=== PATIENT | male | born 1940 | race African-American/Black ===

== ENCOUNTER 2019-05-05 21:46 | Inpatient (IN) | payer OTHER ==
[2019-05-05 22:22] LABS: BASO % 0.6 % (0-2.0); EOS % 3.8 % (0-4.5); HEMATOCRIT 40.8 % (35.4-49); HEMOGLOBIN 13.8 GM/dL (11.7-16.9); LYMPH % 32.3 % (8-40); MCH 29.6 pg (25.7-33.7); MCHC 33.9 g/dl (32.0-35.9); MEAN CELL VOLUME 87.3 fl (80-96); MEAN PLT VOLUME 9.9 fl (7.5-11.1); MONO % 7.3 % (3.8-10.2); PLATELET COUNT 170 K/MM3 (134-434); RBC 4.68 M/mm3 (4.00-5.60); RDW 13.4 % (11.9-15.9)
--- NOTE | 2019-05-05 22:34 | PDOC ---
History of Present Illness - General Chief Complaint: CVA/TIA Stated Complaint: SLURRED SPEECH Time Seen by Provider: 05/05/19 22:34 History Source: Patient, Spouse () Exam Limitations: No Limitations - History of Present Illness Initial Comments: Pt is an 79 yo M, with PMH of HTN, triple bypass CAD, and BPH, who is presenting with complaints of slurred speech and "slowed movement" since 2pm this afternoon. Pt has no current complaints, and does not recall having this symptoms. Pt is accompanied by his , who states the pt was in his usual state of health this AM (pt ambulatory on his own, very functional). When she returned from her errands at 2pm, she noticed the pt was "drooling from the R side of his mouth" and "moving all of his arms and legs very slowly". Pt continued to have these symptoms until about 8pm, when they called EMS, as pt had not improved. Pt denies any recent fevers/chills, headache, vision changes, syncope, chest pain, palpitations, SOB, nausea/vomiting, abdominal pain, urinary symptoms, diarrhea/constipation, or leg swelling. Allergies: NKDA PCP: Dr. Ramos ([facility]) Social: Pt denies any cigarette, alcohol, or drug use. Pt denies any recent travel or sick contacts. 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 Surgical: CABG Family: father with brain aneurysm/sudden age 49 05/06/19 03:57 Past History - Travel Traveled outside of the country in the last 30 days: No Close contact w/someone who was outside of country & ill: No - Past Medical History Allergies/Adverse Reactions: Allergies Allergy/AdvReac Type Severity Reaction Status Date / Time No Known Allergies Allergy Verified 05/05/19 22:13 Home Medications: Ambulatory Orders Amlodipine Besylate 10 mg PO DAILY 05/06/19 Atenolol [Tenormin] 25 mg PO DAILY 05/06/19 Lisinopril [Prinivil -] 40 mg PO DAILY 05/06/19 Tamsulosin HCl 0.4 mg PO DAILY 05/06/19 Cardiac Disorders: Yes CVA: No COPD: No HTN: Yes - Surgical History Cardiac Surgery: Yes - Suicide/Smoking/Psychosocial Hx Smoking History: Never smoked Have you smoked in the past 12 months: No Information on smoking cessation initiated: No Hx Alcohol Use: No Drug/Substance Use Hx: No Neuro Specific PMHX - Complaint Specific PMHX Glaucoma: No Herniated Disk: No Laminectomy: No Migraine: No Multiple Sclerosis: No Neuropathy: No TIA: No Review of Systems - Review of Systems Able to Perform ROS?: Yes Is the patient limited Indonesian proficient: No Constitutional: Yes: Weight Stable. No: Chills, Diaphoresis, Fever, Loss of Appetite, Malaise, Weakness HEENTM: No: Blurred Vision, Recent change in vision, Double Vision, Nose Congestion, Throat Pain, Throat Swelling Respiratory: No: Cough, Orthopnea, Shortness of Breath Cardiac (ROS): No: Chest Pain, Edema, Irregular Heart Rate, Lightheadedness, Palpitations, Syncope, Chest Tightness ABD/GI: No: Constipated, Diarrhea, Nausea, Poor Appetite, Poor Fluid Intake, Vomiting : No: Burning, Dysuria, Frequency, Flank Pain, Pain, Urgency Musculoskeletal: No: Back Pain, Joint Pain, Muscle Pain, Muscle Weakness Integumentary: No: Rash Neurological: Yes: See HPI (slurred speech, drooling from mouth, "moving slowly "). No: Headache, Numbness, Paresthesia, Pre-Existing Deficit, Seizure, Weakness, Unsteady Gait, Ataxia, Dizziness Psychiatric: No: Sleep Pattern Change, Change in Appetite Endocrine: No: Increased Urine, Change in Weight Hematologic/Lymphatic: No: Anemia, Blood Clots, Easy Bleeding, Easy Bruising All Other Systems: Reviewed and Negative *Physical Exam - Vital Signs Last Vital Signs Temp Pulse Resp BP Pulse Ox 98.5 F 57 L 16 151/81 80 L 05/05/19 21:54 05/05/19 21:54 05/05/19 21:54 05/05/19 21:54 05/05/19 21:54 - Physical Exam Comments: Vitals stable, HR in 40s-50s, NSR. Pt afebrile. Pt in NAD, normal body habitus. Pt alert and oriented x3. 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 Mild flattening of R nasal fold. Mild dysmetria ([id number]) on the R. Heel-arreguin and disdiadokinesia exams WNL. No abnormal gait. Negative Romberg. No midline spinal tenderness, step-offs, or crepitus. Head normocephalic, atraumatic. Eyes PERRLA, EOMI. Oropharynx without erythema or exudates, no LAD b/l. No nasal congestion, hearing intact. Clear heart sounds, S1/S2, no JVD, b/l pedal edema, or heart murmur. Clear lung sounds, no respiratory distress, wheezes, crackles, or accessory muscle use. No abdominal or CVA tenderness to palpation, no rebound, no guarding. Abdomen soft, non-distended, and with normoactive bowel sounds. Skin without jaundice or rash. 05/06/19 03:46 NIH Stroke Scale - Last Known Well Date/Time & Onset Date Last Known Well: 05/05/19 Time Last Known Well: 14:00 - Initial Evaluation Level of consciousness: Alert Ask patient the month and their age: Answers both correctly Ask patient to open & close eyes; make fist and let go: Obeys both correctly Best gaze (horizontal eye movement): Normal Visual field testing: No visual field loss Facial paresis (Show teeth/raise eyebrows/close eyes tight): Minor paralysis ( flattened nasolabial fold, asymmetry on smiling) Motor Function: Left Arm: Normal Motor Function: Right Arm: Normal (extends arm 90 (or 45) degrees for 10 seconds without drift Motor Function: Left Leg: Normal (extends leg 30 degrees for 5 seconds without drift) Motor Function: Right Leg: Normal (extends leg 30 degrees for 5 seconds without drift) Limb Ataxia: No ataxia Sensory(Use pinprick test arms,legs,trunk,face/side to side): Normal Best language (Describe picture, name items, read sentences): No Aphasia Dysarthria (read several words): Normal articulation Extinction and Inattention: No abnormality - Total Score NIH Stroke Scale Score: 1 Critical Care Time/MDM Note - Medical Decision Making Note: Pt was seen at bedside, also will be seen by attending Dr. Cline. Pt presenting with complaints of slurred speech and "slowed movement" since 2pm this afternoon. Pt has no current complaints, and does not recall having this symptoms. Pt is accompanied by his , who states the pt was in his usual state of health this AM (pt ambulatory on his own, very functional). When she returned from her errands at 2pm, she noticed the pt was "drooling from the R side of his mouth" and "moving all of his arms and legs very slowly". Pt continued to have these symptoms until about 8pm, when they called EMS, as pt had not improved. Pt denies any recent fevers/chills, headache, vision changes, syncope, chest pain, palpitations, SOB, nausea/vomiting, abdominal pain, urinary symptoms, diarrhea/constipation, or leg swelling. PE: mild dysmetria to R side and mild flattening of R nasal fold. Considering CVA vs TIA vs bleed vs hypoglycemic episode vs infection (UTI) vs medication non-compliance Ordered work-up including CBC, CMP, cardiac profile, lipid profile, non- contrast head CT, UA, chest x-ray, ECG. Will continue to reassess pt and monitor for symptomatic improvement. ECG: Sinus bradycardia with PACs, intervals WNL (HR 49, SC 178, QRS 100, QTc 415 ). No TWIs or significant ST segment changes. No prior ECG for comparison. CBC, CMP, and coags WNL Trop <.02 Non-contrast head CT with no acute changes. Lipid panel: Trig 183, LDL 117, HDL 34 Spoke with neurology on-call (Dr. Betancourt), who suggested MRI/MRA, carotid doppler, and starting lipitor and ASA. Provided 40 mg Lipitor and 325 mg Aspirin. Pt was admitted to hospitalist team (Dr. Preston), for further observation on the stroke unit, as pt likely had TIA, and still has mild deficits. 05/06/19 03:49 *DC/Admit/Observation/Transfer Diagnosis at time of Disposition: Transient ischemic attack - Discharge Dispostion Condition at time of disposition: Stable Decision to Admit order: Yes - Referrals - Patient Instructions - Post Discharge Activity
[2019-05-05 22:38] LABS: INR 1.08 (0.83-1.09); PROTHROMBIN TIME (PATIENT) 12.8 SEC (9.7-13.0)
[2019-05-05 22:48] LABS: ALBUMIN 4.1 g/dl (3.4-5.0); ALK PHOS 118 U/L (45-117); ANION GAP 6 MMOL/L (8-16); BILIRUBIN,TOTAL 0.5 mg/dL (0.2-1); BLOOD UREA NITROGEN 17.6 mg/dL (7-18); CALCIUM 8.9 mg/dL (8.5-10.1); CHLORIDE 107 mmol/L (98-107); CO2 26 mmol/L (21-32); CREATININE 1.3 mg/dL (0.55-1.3); GLUCOSE,RANDOM 111 mg/dL (74-106); POTASSIUM 4.1 mmol/L (3.5-5.1); SGOT/AST 12 U/L (15-37); SGPT/ALT 20 U/L (13-61); SODIUM 139 mmol/L (136-145); TOT PROT 7.6 g/dl (6.4-8.2)
[2019-05-05] MEDS ORDERED: ATORVASTATIN CA 40 MG TABLET (FP) PO ONE (23:38)
[2019-05-05] MEDS ORDERED: ASPIRIN 325 MG ENTERIC COATED TABLET (FP) PO ONE (23:38)
[2019-05-05] MEDS ORDERED: ASPIRIN 325 MG ENTERIC COATED TABLET (FP) ONE (23:55)
[2019-05-05] MEDS ORDERED: ATORVASTATIN CA 40 MG TABLET (FP) ONE (23:55)
[2019-05-06 00:07] LABS: CHOLESTEROL 167 mg/dL (50-200); HDL CHOLESTEROL 34 mg/dL (40-60); TRIGLYCERIDES 183 mg/dL (0-150)
--- NOTE | 2019-05-06 00:53 | HP ---
<Agaba,Comfort I - Last Filed: 05/06/19 18:07> Admitting History and Physical - Primary Care Physician PCP: Dr Ramos ([facility]) - Admission Chief Complaint: Slurred speech and R sided drooling x 1 day History of Present Illness: Pt is an 79 yo M with PMhx of recent mild Alzheimer's diagnosis, HTN, CABG ( May 1996) Ca prostate with implanted seeds (2004) presenting from home after noted him to have new onset slurred speech and R sided drooling at 2.30pm today. Pt's last well was about 7.40am yesterday when the left him in his usual state of health. Per ED, the pt was able to lift both extremities but was noted to respond slowly. He was able to comprehend, but his responses were also slowed prior to arrival in ED. Pt reports not noting the difference prior to the pointing it out. At baseline he is independent in ADLs, does not walk with a a cane. No reported seizures or incontinence of feces or urine. 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 Per pt, there was an episode of syncope in Oct [address] head changes showing chronic small vessel infarcts Ed noted R flattened nasolabial fold. NHISS not documented. Per pt, since arrival in the ED, he feels he has returned almost to baseline. 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 Cardiovascular: Yes: CAD (S/p CABG) Rheumatology: Yes: Gout (Intermittent colchicine use) - Past Surgical History Past Surgical History: Yes: CABG - Smoking History Smoking history: Never smoked Have you smoked in the past 12 months: No - Alcohol/Substance Use Hx Alcohol Use: No - Social History Usual Living Arrangement: Yes: With Spouse, With Child ADL: Independent History of Recent Travel: No Home Medications - Allergies Allergies/Adverse Reactions: Allergies Allergy/AdvReac Type Severity Reaction Status Date / Time No Known Allergies Allergy Verified 05/05/19 22:13 - Home Medications Home Medications: Ambulatory Orders Cholecalciferol (Vitamin D3) [Vitamin D3] 2,000 unit PO DAILY 05/06/19 Tamsulosin HCl 0.4 mg PO DAILY 05/06/19 Aspirin Coated [Ecotrin -] 325 mg PO DAILY #30 tablet.dr 05/08/19 Hydrochlorothiazide [Hctz -] 25 mg PO DAILY #20 tablet 05/08/19 Lisinopril [Prinivil] 20 mg PO BID #60 tablet 05/08/19 Nifedipine ER [Procardia XL -] 60 mg PO DAILY #30 tab.er.24 05/08/19 Rosuvastatin [Crestor -] 40 mg PO HS #30 tablet 05/08/19 Family Disease History - Family Disease History Family Disease History: Heart Disease: Father ( in 40s), Other: Mother ( of sepsis following fracture) Review of Systems - Review of Systems Constitutional: denies: Chills, Fever, Lethargy, Loss of Appetite Eyes: reports: Other (Had catarract surgery). denies: Blurred Vision Cardiovascular: denies: Chest Pain, Edema, Palpitations, Shortness of Breath Respiratory: denies: Cough, SOB, SOB on Exertion, Wheezing Genitourinary: denies: Burning, Dysuria, Flank Pain Musculoskeletal: denies: Back Pain, Decreased ROM Neurological: reports: Weakness, Other (New drooling). denies: Change in LOC, Confusion, Headache, Numbness, Parasthesia, Pre-Existing Deficit, Tremors, Unsteady Gait Physical Examination Vital Signs: Vital Signs Temperature 98.5 F 05/05/19 21:54 Pulse Rate 57 L 05/05/19 21:54 Respiratory Rate 16 05/05/19 21:54 Blood Pressure 151/81 05/05/19 21:54 O2 Sat by Pulse Oximetry (%) 80 L 05/05/19 21:54 Constitutional: Yes: Well Nourished Eyes: Yes: Conjunctiva Clear (injection), EOM Intact, PERRL. No: Ptosis, Sclera Icterus HENT: Yes: Atraumatic. No: Drooling, Nasal Congestion, Thrush Neck: Yes: Supple Cardiovascular: Yes: Bradycardia, S1, S2 Respiratory: Yes: CTA Bilaterally. No: Stridor, Wheezes Gastrointestinal: Yes: Normal Bowel Sounds, Soft Renal/: No: CVA Tenderness - Left, CVA Tenderness - Right Musculoskeletal: No: Joint Stiffness, Joint Swelling, Muscle Pain Extremities: Yes: WNL, Other (b/l big toes with calluses, no swelling or redness ). No: Erythema Edema: No Peripheral Pulses WNL: Yes Neurological: Yes: Alert, Oriented, Aphasia, Cran Nerves II-XII Intact, Facial Droop (R flattened nasolabial fold). No: Confusion ...Motor Strength: WNL Psychiatric: Yes: Alert, Oriented Labs: CBC, BMP 05/05/19 22:17 05/05/19 22:17 Imaging - Results Cat Scan: Report Reviewed Assessment/Plan Ambulatory Orders Amlodipine Besylate 10 mg PO DAILY 05/06/19 Atenolol [Tenormin] 25 mg PO DAILY 05/06/19 Lisinopril [Prinivil -] 40 mg PO DAILY 05/06/19 Tamsulosin HCl 0.4 mg PO DAILY 05/06/19 Current Medications Amlodipine Besylate (Norvasc -) 10 mg PO DAILY [facility] Heparin Sodium (Porcine) (Heparin -) 5,000 unit SQ Q8H-IV [facility] Lisinopril (Prinivil) 40 mg PO DAILY [facility] Tamsulosin HCl (Flomax -) 0.4 mg PO DAILY@0830 [facility] 79 yo M with PMHx of Mild dementia, HTN, CABG (May 2016), gout, Ca prostate s/ p prostate seeds (2004) presenting from home with new onset slurred speech and R sided drooling with resolving symptoms since presentation TIA/Stroke- NIHSS-1 (flattened R nasolabial fold) HTN, CABG (May 2016), gout, Ca prostate s/p prostate seeds (2004) Bradycardia Dementia Plan MRI ASA lipitor- ASCVD score- Unable to calculate as age is too high Hold atenolol with bradycardia Tamsolusin ECHO Carotid US Neuro consult- Dr Betancourt Lisinopril amlodipine Hep sq Cardiac monitoring Speech and swallow PT Stroke unit NPO for now Repeat EKG Pacer pads No standing fluids Fall precautions, elevate HOB Visit type - Emergency Visit Emergency Visit: Yes ED Registration Date: 05/05/19 Care time: The patient presented to the Emergency Department on the above date and was hospitalized for further evaluation of their emergent condition. - New Patient This patient is new to me today: Yes Date on this admission: 05/06/19 - Critical Care Critical Care patient: No <Andi Preston - Last Filed: 05/10/19 23:38> Physical Examination Vital Signs: Vital Signs Temperature 97.2 F L 05/08/19 13:18 Pulse Rate 78 05/08/19 13:18 Respiratory Rate 20 05/08/19 13:18 Blood Pressure 102/64 05/08/19 13:18 O2 Sat by Pulse Oximetry (%) 100 05/08/19 09:00 Labs: CBC, BMP 05/07/19 06:15 05/07/19 06:15 Assessment/Plan Seen and examined; agree with above except as supplemented by myself in my own documentation. Present for and verified all lyons parts of history of physical exam and independently reviewed all labs, test results, etc.
--- NOTE | 2019-05-06 00:53 | PN ---
Teaching Attending Note Name of Resident: Radha Baltazar ATTENDING PHYSICIAN STATEMENT I saw and evaluated the patient. I reviewed the resident's note and discussed the case with the resident. I agree with the resident's findings and plan as documented. SUBJECTIVE: Seen and examined; please refer to resident note for further historical information. Unfortunately family is not available. returned to find him drooling with slurred speech and mild R-facial droop. He was slow to respond and had some b/l UE weakness described. Symptoms have resolved at this point and he is back at baseline. His HR is noted to be maintaining in the 40s but sometimes increasing to the 50s. He is hemodynamically stable aside from this, maintaining his pressures and mentation. When I spoke with him he said he had the same issue last year. He is documented as having baseline dementia and cannot recall all his medications, etc. Unfortunately his departed by the time we arrived to see him so we could not further verify the history; attempting to reach out. He has no other complaints at this time. 10 sys ROS done and negative aside from HPI PMH, PSH, FH, SH reviewed Home medication reconciliation pending: colchicine, lisinopril, atenolol, tamsulosin. Will call pharmacy in the AM. OBJECTIVE: VS, labs, imaging reviewed NAD, AAO, resting comfortably in bed NC AT EOMI PERRLA NIHSS noted, CN2-12 wnl. Moves all 4 extremitites NT ND +BS Normal mood, appropriate behavior. CT reviewed EKG reviewed; no pior for comparison ASSESSMENT AND PLAN: Possible TIA -Symptoms are not classical for TIA given b/l distribution, etc. Considering other causes like cerebral hpoperfusion 2/2 bradycardia, etc. -Followup neurology consultation; appreciate expert opinion. I am informed by the resident team that the ER spoke with their service. -Check MRI, echo, dopplers, B12, Folate, RPR, TSH. -PT and swallow evaluation -Fall precautions, neuro checks, seizure precautions. -Monitor telemetry Sinus bradycardia (40s, 50s) -On atenolol at home; confirm with pharmacy in AM and hold. -BP is normal, mentating at baseline now. EKG does not reveal high degree AV block. Followup on rhythm strips and consider repeating EKG in AM. Follwup echo. Consider CV consultation. -Pacer pads on for safety Dementia -Speak with family to clarify baseline and discuss code status
--- NOTE | 2019-05-06 02:07 | PDOC ---
Documentation entered by Rachel Crowell SCRIBE, acting as scribe for Saniya Cline DO. Saniya Cline DO: This documentation has been prepared by the loren, Rachel Crowell SCRIBE, under my direction and personally reviewed by me in its entirety. I confirm that the documentation accurately reflects all work , treatment, procedures, and medical decision making performed by me. Attending Attestation - Resident Resident Name: Zainab West - ED Attending Attestation I have performed the following: I have examined & evaluated the patient, The case was reviewed & discussed with the resident, I agree w/resident's findings & plan - HPI HPI: 05/06/19 00:03 The patient is an 79 year old male with reported past medical history significant for HTN, s/p triple CABG (3 years ago) presents to the emergency department with decreased responsiveness, noticed by around 2:00 pm. Patients possible last reported normal self was around noon. The family observed the patient for a while at home, prior to being him to the emergency department around 9:00 pm. Denies trauma. Denies fever or chills. The patient currently denies any complaint. Per family, the patient still not at baseline. Allergies: NKA - Physicial Exam PE: 05/05/19 23:22 Agree with Resident - Medical Decision Making 05/06/19 02:05 79-year-old male with altered mental status and decreased responsiveness according to the since [address] scan of the brain shows no acute findings EKG shows a bradycardia at 49 beats per minutes, likely sinus Patient is awake alert in no acute distress Oxygen saturation is actually 100% on room air Chest x-ray shows no focal infiltrates Patient will be admitted to medical service for further evaluation Case was discussed with neurology by the emergency department physician who recommends aspirin and Lipitor
[2019-05-06 07:08] LABS: ALBUMIN 3.6 g/dl (3.4-5.0); ALK PHOS 103 U/L (45-117); ANION GAP 6 MMOL/L (8-16); BILIRUBIN,TOTAL 0.7 mg/dL (0.2-1); BLOOD UREA NITROGEN 14.7 mg/dL (7-18); CALCIUM 8.4 mg/dL (8.5-10.1); CHLORIDE 107 mmol/L (98-107); CO2 29 mmol/L (21-32); CREATININE 1.2 mg/dL (0.55-1.3); GLUCOSE,RANDOM 100 mg/dL (74-106); PHOSPHOROUS 3.4 mg/dL (2.5-4.9); SGOT/AST 12 U/L (15-37); SGPT/ALT 17 U/L (13-61); SODIUM 142 mmol/L (136-145); TOT PROT 6.7 g/dl (6.4-8.2)
[2019-05-06] MEDS ORDERED: HEPARIN NA (PORCINE) 5,000 UNITS/ML 1ML VIAL ONE (08:50)
[2019-05-06] MEDS ORDERED: TAMSULOSIN HCL 0.4 MG CAP ONE (08:50)
[2019-05-06] MEDS: TAMSULOSIN HCL 0.4 MG CAP PO SCH (08:51)
[2019-05-06] MEDS: HEPARIN NA (PORCINE) 5,000 UNITS/ML 1ML VIAL SQ SCH ×3 (08:51→21:40)
--- NOTE | 2019-05-06 09:12 | CON.NEURO ---
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 Cardio/Vascular: Yes: CAD (S/p CABG) Rheumatology: Yes: Gout (Intermittent colchicine use) - Past Surgical History Past Surgical History: Yes: CABG - Alcohol/Substance Use Hx Alcohol Use: No - Smoking History Smoking history: Never smoked Have you smoked in the past 12 months: No - Social History ADL: Independent History of Recent Travel: No Home Medications - Allergies Allergies/Adverse Reactions: Allergies Allergy/AdvReac Type Severity Reaction Status Date / Time No Known Allergies Allergy Verified 05/05/19 22:13 - Home Medications Home Medications: Ambulatory Orders Amlodipine Besylate 10 mg PO DAILY 05/06/19 Atenolol [Tenormin] 25 mg PO DAILY 05/06/19 Lisinopril [Prinivil -] 40 mg PO DAILY 05/06/19 Tamsulosin HCl 0.4 mg PO DAILY 05/06/19 Family Disease History - Family Disease History Family Disease History: Heart Disease: Father ( in 40s), Other: Mother ( of sepsis following fracture) Physical Exam-Neuro Vital Signs: Vital Signs Temperature 97.9 F 05/06/19 07:11 Pulse Rate 48 L 05/06/19 08:55 Respiratory Rate 15 05/06/19 08:55 Blood Pressure 149/64 05/06/19 07:11 O2 Sat by Pulse Oximetry (%) 100 05/06/19 08:55 Labs: CBC, BMP 05/05/19 22:17 05/06/19 06:00 INR, PTT INR 1.08 (0.83-1.09) 05/05/19 22:17 Assessment/Plan CC Slurring of speech and right sided facial palsy yesterday HPI 79 year old male history of Dementia, HTN, CABG( 1995), Ca pROSTATE .Patient 's noticed that he was having slurring of speech and drooling from side of his face arund 2.30 pm. patient was able to move arm and leg sand able to understand but felt he was slow. Patient is quite independent and able to take care of him. There was no other focal neurological symptoms including weakness, numbness or loc. Patient had episode of syncope in 2018. His ct head showed old lesion. Laura has nih score of 1. PMH as above, and gout, LIves with and able to activities of daily living, NKDA SH,ROS,FH reviewed in chart Home Medications: Amlodipine Besylate 10 mg PO DAILY 05/06/19 Atenolol [Tenormin] 25 mg PO DAILY 05/06/19 Lisinopril [Prinivil -] 40 mg PO DAILY 05/06/19 Tamsulosin HCl 0.4 mg PO DAILY 05/06/19 NEUROLOGICAL EXAMINATION Alert , speech is normal, oriented x 3( he knows it is april and he is at [facility]) no neck stiffness, normotensive and afebrile eomi pupils reactive no face asymmetry moving all ext sensation is noraml ct head no acute abnoramlity identified Assessment /PLAN -79 year old male history of HTN,CABG, Mild dementia came with slurred speech and facial droopiness which resolved in hours, he takes apsirin at home, but do not take statin, now exam is noraml, nih score is [address] head is normal Plan: 1. mri of brain, carotid ultrasound , echo - increase aspirin 325 mg once a day, add lipitor 20 mg once a day - dvt prophylaxis, - stroke education - case discussed with [facility] staff Thanking you so much Ruben Betancourt MD
[2019-05-06] MEDS ORDERED: ASPIRIN COATED 81 MG TABLET.EC PO SCH (10:00)
[2019-05-06] MEDS: amLODIPine BESYLATE 10 MG TABLET (FP) PO SCH (10:24)
[2019-05-06] MEDS: LISINOPRIL 20 MG TABLET (FP) PO SCH (10:24)
--- NOTE | 2019-05-06 10:29 | PN ---
Physical Exam: SUBJECTIVE: Patient seen this morning and reports he is feeling well. He reports his speech sounds normal to him. OBJECTIVE: Vital Signs Temperature 97.9 F 05/06/19 07:11 Pulse Rate 48 L 05/06/19 08:55 Respiratory Rate 15 05/06/19 08:55 Blood Pressure 149/64 05/06/19 07:11 O2 Sat by Pulse Oximetry (%) 100 05/06/19 08:55 GENERAL: The patient is awake, alert, and fully oriented, in no acute distress. HEAD: Normal with no signs of trauma. EYES: PERRL, extraocular movements intact, ENT: moist mucous membranes. NECK: Trachea midline, full range of motion, supple. LUNGS: Breath sounds equal, clear to auscultation bilaterally HEART: Regular rate and rhythm, S1, S2 without murmur, rub or gallop. ABDOMEN: Soft, nontender, nondistended, normoactive bowel sounds, no guarding, no rebound, no hepatosplenomegaly, no masses. EXTREMITIES: 2+ pulses, warm, well-perfused, no edema. ROM intct, 5/5 strength diffusely, sensation intact diffusely NEUROLOGICAL: Cranial nerves II through XII grossly intact. Normal speech PSYCH: Normal mood, normal affect. SKIN: Warm, dry, normal turgor, no rashes or lesions noted CBCD WBC 6.0 K/mm3 (4.0-10.0) 05/05/19 22:17 RBC 4.68 M/mm3 (4.00-5.60) 05/05/19 22:17 Hgb 13.8 GM/dL (11.7-16.9) 05/05/19 22:17 Hct 40.8 % (35.4-49) 05/05/19 22:17 MCV 87.3 fl (80-96) 05/05/19 22:17 MCHC 33.9 g/dl (32.0-35.9) 05/05/19 22:17 RDW 13.4 % (11.9-15.9) 05/05/19 22:17 Plt Count 170 K/MM3 (134-434) 05/05/19 22:17 MPV 9.9 fl (7.5-11.1) 05/05/19 22:17 CMP Sodium 142 mmol/L (136-145) 05/06/19 06:00 Potassium 4.0 mmol/L (3.5-5.1) 05/06/19 06:00 Chloride 107 mmol/L (98-107) 05/06/19 06:00 Carbon Dioxide 29 mmol/L (21-32) 05/06/19 06:00 Anion Gap 6 MMOL/L (8-16) L 05/06/19 06:00 BUN 14.7 mg/dL (7-18) 05/06/19 06:00 Creatinine 1.2 mg/dL (0.55-1.3) 05/06/19 06:00 Calcium 8.4 mg/dL (8.5-10.1) L 05/06/19 06:00 Total Bilirubin 0.7 mg/dL (0.2-1) 05/06/19 06:00 AST 12 U/L (15-37) L 05/06/19 06:00 ALT 17 U/L (13-61) 05/06/19 06:00 Alkaline Phosphatase 103 U/L (45-117) 05/06/19 06:00 Total Protein 6.7 g/dl (6.4-8.2) 05/06/19 06:00 Albumin 3.6 g/dl (3.4-5.0) 05/06/19 06:00 Active Medications Amlodipine Besylate (Norvasc -) 10 mg PO DAILY [facility] Aspirin (Ecotrin -) 81 mg PO DAILY [facility] Atorvastatin Calcium (Lipitor -) 40 mg PO HS [facility] Heparin Sodium (Porcine) (Heparin -) 5,000 unit SQ TID [facility] Last Admin: 05/06/19 08:51 Dose: 5,000 unit Lisinopril (Prinivil) 40 mg PO DAILY [facility] Tamsulosin HCl (Flomax -) 0.4 mg PO DAILY@0830 [facility] Last Admin: 05/06/19 08:51 Dose: 0.4 mg ASSESSMENT/PLAN: Patient is a 79 y/o male with a history of mild dementia, HTN, CABG ( may 2016) , gout, porstate ca s/p prostate seeds (2004) who is admitted to r/o stroke. #new onset slurred speech and weakness - cannot r/o TIA vs stroke - symptoms resolved - CT: mild degree of diffuse cerbral atrophy and sulcal widening and ventral dilitation, no acute intracranial pathology - f/u Brain MRI - per Neuro increase asa to 325 mg daily, lipitor 20 mg once a day - stroke education - ECHO: left and right size and function normal #HTN - continue lisinopril 40 mg and amlodipine 20 mg daily - BP stable #bradycardia - EKG 1st degree av block - hold atenolol - TSH WNL - pacer pads at bedside #BPH - tamsulonin 0.4 mg daily #DVT ppx - heparin TID FEN -passed swallow, low sodium diet Dispo: monitor on stroke floor Visit type - Emergency Visit Emergency Visit: Yes ED Registration Date: 05/05/19 Care time: The patient presented to the Emergency Department on the above date and was hospitalized for further evaluation of their emergent condition. - New Patient This patient is new to me today: Yes Date on this admission: 05/06/19 - Critical Care Critical Care patient: No
--- NOTE | 2019-05-06 11:46 | EKG ---
Test Reason : Blood Pressure : / mmHG Vent. Rate : 049 BPM Atrial Rate : 049 BPM P-R Int : 178 ms QRS Dur : 100 ms QT Int : 460 ms P-R-T Axes : 060 028 -07 degrees QTc Int : 415 ms SINUS BRADYCARDIA WITH PREMATURE ATRIAL COMPLEXES NONSPECIFIC T WAVE ABNORMALITY ABNORMAL ECG NO PREVIOUS ECGS AVAILABLE Confirmed by PARIS DALTON, BAUDILIO ([id number]) on 05/06/2019 11:45:33 AM Referred By: Confirmed By:BAUDILIO TOLEDO MD
--- NOTE | 2019-05-06 12:41 | ECHO ---
Name: BISI GARCIA Exam:Adult Echocardiogram Study Date: 05/06/2019 08:39 AM Age: 79 yrs Reason For Study: SYNCOPE Height: 66 in Weight: 175 lb BSA: 1.9 m2 MMode/2D Measurements & Calculations IVSd: 1.1 cm Ao root diam: 3.1 cm LVIDd: 3.9 cm ACS: 1.9 cm LVIDs: 2.9 cm LVPWd: 1.1 cm EDV(Teich): 67.2 ml LVOT diam: 1.9 cm ESV(Teich): 32.4 ml Doppler Measurements & Calculations MV E max mike: 72.1 cm/sec Ao V2 max: 127.0 cm/sec MV A max mike: 96.7 cm/sec Ao max P.5 mmHg MV E/A: 0.74 Ao V2 mean: 87.3 cm/sec Ao mean P.3 mmHg Ao V2 VTI: 34.1 cm KYLAH(I,D): 1.5 cm2 KYLAH(V,D): 1.4 cm2 LV V1 max P.5 mmHg SV(LVOT): 52.2 ml LV V1 mean P.80 mmHg LV V1 max: 60.7 cm/sec LV V1 mean: 41.9 cm/sec LV V1 VTI: 17.6 cm Med Peak E' Mike: 6.4 cm/sec Med E/e': 11.2 Lat Peak E' Mike: 6.8 cm/sec Lat E/e': 10.6 Procedure A complete two-dimensional transthoracic echocardiogram was performed (2D, M-mode, Doppler and color flow Doppler). Left Ventricle The left ventricular size, thickness and function are normal. The left ventricular ejection fraction is normal. Ejection Fraction = 60-65%. The left ventricular wall motion is normal. Right Ventricle The right ventricle is normal in size and function. Atria Normal left and right atrial size and function. Mitral Valve There is no mitral regurgitation noted. Tricuspid Valve There is trace tricuspid regurgitation. There was insufficient TR detected to calculate RV systolic p ressure. Aortic Valve The aortic valve is trileaflet. No hemodynamically significant valvular aortic stenosis. No aortic regurgitation is present. Pulmonic Valve There is no pulmonic valvular regurgitation. Great Vessels The aortic root is normal size. Pericardium/Pleura There is no pericardial effusion. Interpretation Summary The left ventricular size, thickness and function are normal The right ventricle is normal in size and function. There is trace tricuspid regurgitation. MD Leonardo Isaac 05/06/2019 12:40 PM
--- NOTE | 2019-05-06 14:18 | PN ---
Teaching Attending Note Name of Resident: Jessie Sexton ATTENDING PHYSICIAN STATEMENT I saw and evaluated the patient. I reviewed the resident's note and discussed the case with the resident. I agree with the resident's findings and plan as documented. SUBJECTIVE:asymptomatic. denies Cp,SOB, fever, chills, N/V/C/D OBJECTIVE: Last Vital Signs Temp Pulse Resp BP Pulse Ox 97.9 F 48 L 15 149/64 100 05/06/19 07:11 05/06/19 08:55 05/06/19 08:55 05/06/19 07:11 05/06/19 08:55 General NAD CV S1 S2 RRR no murmur/rub/gallop Lungs CTA B/L no wheezing/rales/rhonchi Abdomen soft NT/ND Extremiteis trace pitting edema Neuro CN II-XII grossly intact, strength and sensation equal in all extremities , negative pronator/dysmetria/heel to arreguin testing ASSESSMENT AND PLAN: 79yo M wtih PMH Dementia, HTN, CAD s/p CABG, prostate ca s/p seeds 2004 presented to the ER with drooling nad slurred speech. Code baird was initiated and NIHSS 1 on arrival. 1. R/o CVA/TIA- appears symptoms have resolved at this time. initial Head CT negative. Awaiting Brain MRI/MRA, echo carotid u/s. asa increased to 325mg and started on high intensity statin. neuro on board, swallow eval and PT. LDL 117 2. Sinus Bradycardia- asymptomatic. no know hx per patient. EKG with 1st degree AV block. holding atenolol. f/u echo. TSH WNL 3. HTN- above goal. on max doses of norvasc/Acei. will start HCTZ 25mg. titrate to optimize medications 4. CAD s/p CABG 5. prostate ca s/p seeds 6. DVT ppx- hep sq
--- NOTE | 2019-05-06 14:33 | CONSULT ---
Admitting History and Physical - Primary Care Physician PCP: Kristal Sampson - Admission History of Present Illness: 79yo M [facility], [place] Dementia, HTN, CAD s/p CABG, prostate ca s/p seeds 2004 presented to the ER with drooling and slurred speech. R/o CVA/TIA- initial Head CT negative. Pending Brain MRI/MRA Seen in ED. History Source: Patient Limitations to Obtaining History: Clinical Condition (Pt with dx of Dementia. Good historian for me. Pt tells me he has been in the ED since yesterday. He was drooling and his balance was off yesterday. He reports that it lasted a few hours but that he feels better today. He is hungry.) - Past Medical History Cardiovascular: Yes: CAD (S/p CABG) Rheumatology: Yes: Gout (Intermittent colchicine use) - Past Surgical History Past Surgical History: Yes: CABG - Smoking History Smoking history: Never smoked Have you smoked in the past 12 months: No - Alcohol/Substance Use Hx Alcohol Use: No - Social History ADL: Independent History of Recent Travel: No History - Admission Reason For Visit: TRANSIENT ISCHEMIC ATTACK - Diagnostics X-ray: Report Reviewed CT Scan: Report Reviewed MRI: Pending - General Mental Status: Alert and Oriented, Awake and Alert, Able to Follow Commands Attention: Intact Ability to Follow Directions: Excellent Head/Neck Control: WFL - Hearing Hearing: Functional Speech Evaluation - Communication Primary Language: ICELANDIC Communication: Yes: Within Normal Limits Oral Expression Ability: Yes: Mild Impairment (slight imprecision vs [place] accent?) - Speech Production Able to Make Needs Known: Yes: WNL Intelligibility: Yes: Mildly Impaired (slight?) - Speech Characteristics Voice Loudness: Normal Voice Pitch: Yes: Normal Voice Phonatory-based Quality: Yes: Normal Speech Clarity: < 100% Nasal Resonance: Normal Articulation: Yes: Imprecise (slight. Slightly reduced VOM) - Language/Auditory Comprehension Follows: Yes: 2 Stage Simple Commands Observation: Able to respond to yes/no queries: Yes, Yes/No Confusion: No, Comprehends Conversational Speech: Yes - Language/Verbal Expression Able to Respond to Simple Queries: Yes: WNL Able to Communicate Wants and Needs: Yes: WNL Functional Communication Status: Yes: WNL Attention: Yes: Intact - Memory/Perception intermediate Memory: Yes: WNL Short Term Memory: Yes: WNL - Swallow Evaluation/Bedside Assessment Current Nutritional Intake: NPO Oral Secretions: Yes: WFL Dentition: Yes: Adequate Facial Symmetry at Rest: Facial Droop Right (slight?) Facial Symmetry on Retraction: Symmetrical Facial Movement: Controlled Against Resistance Opening: Normal Against Resistance Closing: Normal Pucker Lips: Normal Smile: Normal Lingual Movement: Symmetric Lingual Speed of Movement: Normal Lingual Movement Strgth Against Opposition: Normal Lingual Movement Characteristics: Normal Velopharyngeal Movement: Normal Laryngeal Elevation: WFL Laryngeal Movement: Able to Palpate Rate of Intake: WFL Bolus Size: WFL Labial Seal: WFL Chewing: WFL (mildly reduced in rate. Seems efficient.) Oral Prep Time: WFL A-P Transit: WFL Pocketing: None Timing of Swallow: WFL Odynophagia: Oral Coughing/Throat Clear: No Change in Voice: No Recommendations - Speech Evaluation, Impression/Plan Impression: Good historian for me. Aware of why admitted and what tests are pending. Mildly imprecise articulation or at baseline. Swallowing overtly functional. - Disposition Discharge to: To be Determined - Dysphagia Impressions/Plan Dysphagia Impressions: Minimal Impairment *Silent aspiration: cannot be R/O at bedside Dysphagia Treatment Plan: Clear Pocket Food, Safe Rate, 1/2 tsp. at a time, Elevate HOB during feed Recommendations: Other (Monitor PO tolerance. If cough, congestion, fever, MBS) - Recommendations Diet Consistency: Regular (soft) Medication Administration: Whole with water Liquids: Thin Liquids
[2019-05-06 18:00] VITALS: BMI 29.1
[2019-05-06] MEDS: HYDROCHLOROTHIAZIDE 25 MG TABLET (FP) PO SCH (18:39)
[2019-05-06] MEDS: ROSUVASTATIN CA 20 MG TABLET (FP) PO SCH (21:40)
[2019-05-06] MEDS ORDERED: ROSUVASTATIN CA 40 MG TABLET PO SCH (22:00)
[2019-05-06] MEDS ORDERED: ATORVASTATIN CA 40 MG TABLET (FP) PO SCH (22:00)
[2019-05-06] MEDS ORDERED: ATORVASTATIN CA 20 MG TABLET (FP) PO SCH (22:00)
[2019-05-07] MEDS: HEPARIN NA (PORCINE) 5,000 UNITS/ML 1ML VIAL SQ SCH ×3 (06:46→21:44)
[2019-05-07 07:02] LABS: HEMATOCRIT 41.6 % (35.4-49); MCH 29.3 pg (25.7-33.7); MCHC 33.6 g/dl (32.0-35.9); MEAN CELL VOLUME 87.3 fl (80-96); MEAN PLT VOLUME 10.2 fl (7.5-11.1); PLATELET COUNT 154 K/MM3 (134-434); RBC 4.77 M/mm3 (4.00-5.60); RDW 13.2 % (11.9-15.9); WHITE BLOOD COUNT 4.6 K/mm3 (4.0-10.0)
[2019-05-07 07:38] LABS: BLOOD UREA NITROGEN 18.4 mg/dL (7-18); CALCIUM 9.1 mg/dL (8.5-10.1); CREATININE 1.3 mg/dL (0.55-1.3); POTASSIUM 4.1 mmol/L (3.5-5.1)
[2019-05-07] MEDS: TAMSULOSIN HCL 0.4 MG CAP PO SCH (09:09)
[2019-05-07] MEDS: amLODIPine BESYLATE 10 MG TABLET (FP) PO SCH (10:45)
[2019-05-07] MEDS: HYDROCHLOROTHIAZIDE 25 MG TABLET (FP) PO SCH (10:45)
[2019-05-07] MEDS: LISINOPRIL 20 MG TABLET (FP) PO SCH (10:45)
[2019-05-07] MEDS: ASPIRIN 325 MG ENTERIC COATED TABLET (FP) PO SCH (10:46)
--- NOTE | 2019-05-07 10:47 | CON.CARD ---
Consult Consult Specialty:: Cardiology Referred by:: Hospitalist Medicine Reason for Consultation:: Acute stroke - History of Present Illness Chief Complaint: Dysarthria History of Present Illness: CC Slurring of speech and right sided facial palsy yesterday HPI 79 year old male history of Dementia, HTN, CAD s/p CABG( 1995), prostate ca s/p seeds 2004 .Patient 's noticed that he was having slurring of speech, mild right facial droop and drooling from side of his face. patient was able to move arm and leg sand able to understand but felt he was slow to respond. Patient is quite independent and able to take care of him. There was no other focal neurological symptoms including weakness, numbness or loc. His ct head showed old lesion. MRI shows acute nonhemorrhagic left parietal lobe infarct. 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 Cardio/Vascular: Yes: CAD (S/p CABG) Rheumatology: Yes: Gout (Intermittent colchicine use) - Past Surgical History Past Surgical History: Yes: CABG - Alcohol/Substance Use Hx Alcohol Use: No - Smoking History Smoking history: Never smoked Have you smoked in the past 12 months: No - Social History ADL: Independent History of Recent Travel: No Home Medications - Allergies Allergies/Adverse Reactions: Allergies Allergy/AdvReac Type Severity Reaction Status Date / Time No Known Allergies Allergy Verified 05/05/19 22:13 - Home Medications Home Medications: Ambulatory Orders Amlodipine Besylate 10 mg PO DAILY 05/06/19 Aspirin 81 mg PO DAILY 05/06/19 Atenolol [Tenormin] 25 mg PO DAILY 05/06/19 Cholecalciferol (Vitamin D3) [Vitamin D] 2,000 unit PO DAILY 05/06/19 Lisinopril [Prinivil -] 40 mg PO DAILY 05/06/19 Tamsulosin HCl 0.4 mg PO DAILY 05/06/19 Family Disease History - Family Disease History Family Disease History: Heart Disease: Father ( in 40s), Other: Mother ( of sepsis following fracture) Review of Systems - Review of Systems Neurological: reports: Change in Speech Vital Signs: Vital Signs Temperature 97.9 F 05/07/19 09:00 Pulse Rate 49 L 05/07/19 09:00 Respiratory Rate 18 05/07/19 09:00 Blood Pressure 131/68 05/07/19 09:00 O2 Sat by Pulse Oximetry (%) 100 05/06/19 21:00 Constitutional: Yes: No Distress, Calm Neck: Yes: Supple Respiratory: Yes: Regular, CTA Bilaterally Gastrointestinal: Yes: Normal Bowel Sounds, Soft Cardiovascular: Yes: Bradycardia JVD: No Carotid Bruit: No Heart Sounds: Yes: S1, S2 Edema: No - Other Data Labs, Other Data: CBC, BMP 05/07/19 06:15 05/07/19 06:15 INR, PTT INR 1.08 (0.83-1.09) 05/05/19 22:17 SB 49 PAC Tele: Sinus arrhythmia occ PVC Ejection Fraction %: LVEF > or = 40 % Imaging - Results Chest X-ray: Report Reviewed (NAD) Cat Scan: Report Reviewed (HCT: No acute changes) Ultrasound: Report Reviewed (No carotid stenosis) Problem List - Problems (1) Acute lacunar stroke Code(s): I63.81 - OTHER CEREB INFRC DUE TO OCCLS OR STENOSIS OF SMALL ARTERY (2) Coronary artery disease Code(s): I25.10 - ATHSCL HEART DISEASE OF [place] CORONARY ARTERY W/O ANG PCTRS Qualifiers: Coronary Disease-Associated Artery/Lesion type: [place] artery [place] vs. transplanted heart: [place] heart Associated angina: without angina Qualified Code(s): I25.10 - Atherosclerotic heart disease of [place] coronary artery without angina pectoris (3) S/P CABG (coronary artery bypass graft) Code(s): Z95.1 - PRESENCE OF AORTOCORONARY BYPASS GRAFT (4) Hypertensive heart disease Code(s): I11.9 - HYPERTENSIVE HEART DISEASE WITHOUT HEART FAILURE Qualifiers: Heart failure presence: without heart failure Qualified Code(s): I11.9 - Hypertensive heart disease without heart failure (5) Dementia Code(s): F03.90 - UNSPECIFIED DEMENTIA WITHOUT BEHAVIORAL DISTURBANCE Qualifiers: Dementia type: unspecified type Dementia behavioral disturbance: without behavioral disturbance Qualified Code(s): F03.90 - Unspecified dementia without behavioral disturbance Assessment/Plan 05/06/2019 Brain MRI: Acute nonhemorrhagic left parietal lobe infarct 05/06/2019 Echo: Normal LV and RV size and fxn, Tr TR 05/05/2019 ct head no acute abnormality identified 1. Acute nonhemorrhagic left parietal lobe infarct 2. CAD s/p CABG, angina pectoris 3. Hypertensive heart disease 4. Dementia 5. Sinus bradycardia - atenolol held P:1. Agree with ASA 325 qd, Crestor 40 qd, lisinopril 40 qd, amlodipine 10 qd, HCTZ 25 qd 2. Telemetry monitoring to r/o PAF, may benefit from prolonged arrhythmia monitor if inpatient telemetry unrevealing 3. S&S, neuro input appreciated, DVT prophylaxis 4. Thank you for consultative opportunity
--- NOTE | 2019-05-07 11:38 | PN ---
Physical Exam: SUBJECTIVE: Patient seen this morning and without complaint. No acute events. OBJECTIVE: Vital Signs Temperature 97.9 F 05/07/19 09:00 Pulse Rate 49 L 05/07/19 09:00 Respiratory Rate 18 05/07/19 09:00 Blood Pressure 131/68 05/07/19 09:00 O2 Sat by Pulse Oximetry (%) 100 05/06/19 21:00 GENERAL: The patient is awake, alert, and fully oriented, in no acute distress. HEAD: Normal with no signs of trauma. EYES: PERRL, extraocular movements intact, ENT: moist mucous membranes. NECK: Trachea midline, full range of motion, supple. LUNGS: Breath sounds equal, clear to auscultation bilaterally HEART: Regular rate and rhythm, S1, S2 without murmur, rub or gallop. ABDOMEN: Soft, nontender, nondistended, normoactive bowel sounds, no guarding, no rebound, no hepatosplenomegaly, no masses. EXTREMITIES: 2+ pulses, warm, well-perfused, no edema. ROM intct, 5/5 strength diffusely, sensation intact diffusely NEUROLOGICAL: Cranial nerves II through XII grossly intact. Normal speech SKIN: Warm, dry, normal turgor, no rashes or lesions noted CBC, BMP 05/07/19 06:15 05/07/19 06:15 Active Medications Amlodipine Besylate (Norvasc -) 10 mg PO DAILY [facility] Last Admin: 05/07/19 10:45 Dose: 10 mg Aspirin (Ecotrin -) 325 mg PO DAILY [facility] Last Admin: 05/07/19 10:46 Dose: 325 mg Heparin Sodium (Porcine) (Heparin -) 5,000 unit SQ TID [facility] Last Admin: 05/07/19 06:46 Dose: 5,000 unit Hydrochlorothiazide (Hctz -) 25 mg PO DAILY [facility] Last Admin: 05/07/19 10:45 Dose: 25 mg Lisinopril (Prinivil) 40 mg PO DAILY [facility] Last Admin: 05/07/19 10:45 Dose: 40 mg Rosuvastatin Calcium (Crestor -) 40 mg PO HS [facility] Last Admin: 05/06/19 21:40 Dose: 40 mg Tamsulosin HCl (Flomax -) 0.4 mg PO DAILY@0830 [facility] Last Admin: 05/07/19 09:09 Dose: 0.4 mg ASSESSMENT/PLAN: Patient is a 79 y/o male with a history of mild dementia, HTN, CABG ( may 2016) , gout, prostate ca s/p prostate seeds (2004) who is admitted to r/o stroke. #stroke - symptoms resolved - CT: mild degree of diffuse cerbral atrophy and sulcal widening and ventral dilitation, no acute intracranial pathology - Brain MRI: acute nonhemorrhagic infarct left parietal lobe adjacent to the body of the left lateral ventricle extending to the left caudate nucleus and posterior limb of the left internal capsule - per Neuro increase asa to 325 mg daily, Crestor 40 mg once a day - ECHO: left and right size and function normal #HTN - continue lisinopril 40 mg, amlodipine 10 mg daily, HCTZ 25 mg daily - BP stable #bradycardia - EKG 1st degree av block - hold atenolol - TSH WNL - Cardio seen by Dr Batres: march/u as an outpatient for prolonged monitoring #BPH - tamsulonin 0.4 mg daily #DVT ppx - heparin TID FEN -low sodium diet Dispo: monitor on stroke floor, can likely DC tomorrow if remains asymptomatic Visit type - Emergency Visit Emergency Visit: No - New Patient This patient is new to me today: No - Critical Care Critical Care patient: No
--- NOTE | 2019-05-07 12:15 | PN ---
Teaching Attending Note Name of Resident: Jessie Sexton ATTENDING PHYSICIAN STATEMENT I saw and evaluated the patient. I reviewed the resident's note and discussed the case with the resident. I agree with the resident's findings and plan as documented. SUBJECTIVE:asymptomatic. denies CP, SOB, fever, chills, bllurred vision, N/V/C/D OBJECTIVE: Last Vital Signs Temp Pulse Resp BP Pulse Ox 97.9 F 49 L 18 131/68 100 05/07/19 09:00 05/07/19 09:00 05/07/19 09:00 05/07/19 09:00 05/06/19 21:00 General NAD CV S1 S2 RRR no murmur/rub/gallop Lungs CTA B/L no wheezing/rales/rhonchi ASSESSMENT AND PLAN: 79yo M wtih PMH Dementia, HTN, CAD s/p CABG, prostate ca s/p seeds 2004 presented to the ER with drooling nad slurred speech. Code baird was initiated and NIHSS 1 on arrival. 1. L parietal CVA- nonhemorrhagic stroke. symptoms have resolved. carotid and echo normal. on full dose AsA and crestor. no events noted on security monitor. will need to monitor for afib for 48H. if unrevealing will need to f/u with cardio to pursue longer cardiac monitoring. neuro on board. 2. Sinus Bradycardia- asymptomatic. HR does not improve much with light activity 57 to 60. 1st degree AV block noted on EKG. atenolol held since yesterday. will consult cardio. TSH WNL 3. HTN- controlled. cont medications 4. CAD s/p CABG 5. prostate ca s/p seeds 6. DVT ppx- hep sq
--- NOTE | 2019-05-07 12:18 | PN ---
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: Selected Entries 05/06/19 05/06/19 05/06/19 07:11 15:16 16:55 Breakfast Diet Tolerated Supper Temperature 97.9 F 98.0 F 98.2 F Pulse Rate Pulse Rate [ Left side Sitting] Pulse Rate [ Left side Standing] 05/06/19 05/06/19 05/07/19 19:19 23:00 01:31 Breakfast Diet Tolerated Well Supper 100% Temperature 98.1 F Pulse Rate 43 L Pulse Rate [ Left side Sitting] Pulse Rate [ Left side Standing] 05/07/19 05/07/19 05/07/19 07:44 09:00 11:09 Breakfast 100% Diet Tolerated Well Supper Temperature Pulse Rate 49 L Pulse Rate [ 53 L Left side Sitting] Pulse Rate [ 57 L Left side Standing] Laboratory Tests 05/07/19 06:15 WBC 4.6 L parietal CVA- nonhemorrhagic stroke Tolerating Regular diet/ thin liquids well. Pt's reports that pt's mentation varies at times, with periodic delay in recalling or retrieving information. Pt feels it's due to aging.
[2019-05-07] MEDS: ROSUVASTATIN CA 20 MG TABLET (FP) PO SCH (21:40)
[2019-05-07] MEDS ORDERED: amLODIPine BESYLATE 5 MG TABLET (FP) PO ONE (23:03)
[2019-05-08] MEDS: HEPARIN NA (PORCINE) 5,000 UNITS/ML 1ML VIAL SQ SCH (06:33)
[2019-05-08] MEDS: TAMSULOSIN HCL 0.4 MG CAP PO SCH (09:07)
[2019-05-08] MEDS: amLODIPine BESYLATE 10 MG TABLET (FP) PO SCH (10:08)
[2019-05-08] MEDS: HYDROCHLOROTHIAZIDE 25 MG TABLET (FP) PO SCH (10:08)
[2019-05-08] MEDS: LISINOPRIL 20 MG TABLET (FP) PO SCH (10:08)
[2019-05-08] MEDS: ASPIRIN 325 MG ENTERIC COATED TABLET (FP) PO SCH (10:08)
[2019-05-08] MEDS ORDERED: NIFEdipine E.R 60 MG TABLET (UD) PO STA (11:35)
[2019-05-08 13:19] VITALS: BP 102/64; PULSE 78; TEMP 97.2
--- NOTE | 2019-05-08 13:43 | PN ---
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 (short form) - Note 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: currently asymptomatic. denies CP, SOB, fever, chills, dizzyness, N/V/C/D Current Medications Generic Name Dose Route Start Last Admin Trade Name Mayi PRN Reason Stop Dose Admin Aspirin 325 mg 05/07/19 10:00 05/08/19 10:08 Ecotrin - PO 325 mg DAILY STONE Administration Heparin Sodium (Porcine) 5,000 unit 05/06/19 07:00 05/08/19 06:33 Heparin - SQ 5,000 unit TID STONE Administration Hydrochlorothiazide 25 mg 05/06/19 14:30 05/08/19 10:08 Hctz - PO 25 mg DAILY STONE Administration Lisinopril 40 mg 05/06/19 10:00 05/08/19 10:08 Prinivil PO 40 mg DAILY STONE Administration Rosuvastatin Calcium 40 mg 05/06/19 22:00 05/07/19 21:40 Crestor - PO 40 mg HS STONE Administration Tamsulosin HCl 0.4 mg 05/06/19 08:30 05/08/19 09:07 Flomax - PO 0.4 mg DAILY@0830 STONE Administration Last Vital Signs Temp Pulse Resp BP Pulse Ox 97.2 F L 78 20 102/64 100 05/08/19 13:18 05/08/19 13:18 05/08/19 13:18 05/08/19 13:18 05/08/19 09:00 General NAD CV S1 S2 RRR no murmur/rub/gallop Lungs CTA B/L no wheezing/rales/rhonchi ASSESSMENT AND PLAN: 79yo M wtih PMH Dementia, HTN, CAD s/p CABG, prostate ca s/p seeds 2004 presented to the ER with drooling nad slurred speech. Code baird was initiated and NIHSS 1 on arrival. 1. L parietal CVA- nonhemorrhagic stroke. symptoms have resolved. carotid and echo normal. on full dose AsA and crestor. no events noted on elevator examiner. will need to f/u with cardio for prolonged cardiac monitoring. tight BP control. neuro on board. 2. Sinus Bradycardia- asymptomatic. HR remains in mid 50's. off atenolol. evaluated by cardio. no further workup at this time. 3. HTN- appears to be more elevated in the evenings. will need tight round the clock Bp control. elevated this AM. d/c norvasc and switch to nifedipine 60mg. split lisinopril to 20mg BID for smoother control. HCTZ also added during this stay. will hold norvasc and atenolol on discharge 4. CAD s/p CABG 5. prostate ca s/p seeds 6. DVT ppx- hep sq 7. d/c home. stressed that there has been mutliple medication changes adn that needs to follow new medication list provided. will need cardio and neuro follow up Visit type - Emergency Visit Emergency Visit: Yes ED Registration Date: 05/05/19 Care time: The patient presented to the Emergency Department on the above date and was hospitalized for further evaluation of their emergent condition. - New Patient This patient is new to me today: No - Critical Care Critical Care patient: No - Discharge Referral Referred to [facility] No
--- NOTE | 2019-05-08 14:16 | PN ---
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, Physician Chief Complaint: Pt Alert; asmptomatic. Pt's is at bedside. History of Present Illness: The patient is an 79 year old black male (naz Howell) (recently moved to [place] from [place], [place]), with reported past medical history significant for HTN, s/p triple CABG (3 years ago; denies hx [place]) presents to the emergency department with decreased responsiveness, noticed by around 2:00 pm. Patients possible last reported normal self was around noon. The family observed the patient for a while at home, prior to being him to the emergency department around 9:00 pm. Denies trauma. Denies fever or chills. The patient currently denies any complaint. Per family, the patient still not at baseline. 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 Allergies: NKA - - Current Medication List Current Medications: Active Medications Aspirin (Ecotrin -) 325 mg PO DAILY [facility] Last Admin: 05/08/19 10:08 Dose: 325 mg Heparin Sodium (Porcine) (Heparin -) 5,000 unit SQ TID [facility] Last Admin: 05/08/19 06:33 Dose: 5,000 unit Hydrochlorothiazide (Hctz -) 25 mg PO DAILY [facility] Last Admin: 05/08/19 10:08 Dose: 25 mg Lisinopril (Prinivil) 40 mg PO DAILY [facility] Last Admin: 05/08/19 10:08 Dose: 40 mg Rosuvastatin Calcium (Crestor -) 40 mg PO HS [facility] Last Admin: 05/07/19 21:40 Dose: 40 mg Tamsulosin HCl (Flomax -) 0.4 mg PO DAILY@0830 [facility] Last Admin: 05/08/19 09:07 Dose: 0.4 mg - Objective Vital Signs: Vital Signs Temperature 97.2 F L 05/08/19 13:18 Pulse Rate 78 05/08/19 13:18 Respiratory Rate 20 05/08/19 13:18 Blood Pressure 102/64 05/08/19 13:18 O2 Sat by Pulse Oximetry (%) 100 05/08/19 09:00 Constitutional: Yes: Calm Eyes: Yes: WNL HENT: Yes: WNL Neck: Yes: WNL Cardiovascular: Yes: Regular Rate and Rhythm Respiratory: Yes: WNL Gastrointestinal: Yes: WNL ...Rectal Exam: Yes: Deferred Genitourinary: No: Anuria Breast(s): Yes: WNL Musculoskeletal: Yes: WNL Extremities: Yes: WNL Edema: No Peripheral Pulses WNL: Yes Integumentary: Yes: Other (healed CABG sternal scar) Neurological: Yes: Alert Psychiatric: Yes: Other (hx dementia) Labs: CBC, BMP 05/07/19 06:15 05/07/19 06:15 INR, PTT INR 1.08 (0.83-1.09) 05/05/19 22:17 - ....Imaging Other: Image Reviewed (telemetry: sinus bradycardia) Problem List - Problems (1) Acute lacunar stroke Assessment/Plan: f/u with neurologist. On ASA (?325 mg daily needed; was on 81 mg dailhy). Code(s): I63.81 - OTHER CEREB INFRC DUE TO OCCLS OR STENOSIS OF SMALL ARTERY (2) Dementia Code(s): F03.90 - UNSPECIFIED DEMENTIA WITHOUT BEHAVIORAL DISTURBANCE Qualifiers: Dementia type: unspecified type Dementia behavioral disturbance: without behavioral disturbance Qualified Code(s): F03.90 - Unspecified dementia without behavioral disturbance (3) Hypertensive heart disease Assessment/Plan: On lisinopril and HCTZ. Code(s): I11.9 - HYPERTENSIVE HEART DISEASE WITHOUT HEART FAILURE Qualifiers: Heart failure presence: without heart failure Qualified Code(s): I11.9 - Hypertensive heart disease without heart failure (4) S/P CABG (coronary artery bypass graft) Assessment/Plan: Pt's says he completed cardiac rehabiltation after the CABG 3 yrs ago. Code(s): Z95.1 - PRESENCE OF AORTOCORONARY BYPASS GRAFT (5) Sinus bradycardia Assessment/Plan: On PAF noted on telemetry. Code(s): R00.1 - BRADYCARDIA, UNSPECIFIED
--- NOTE | 2019-05-11 08:41 | DS ---
Physical Exam: SUBJECTIVE: Patient DC on the OBJECTIVE: Vital Signs Temperature 97.2 F L 05/08/19 13:18 Pulse Rate 78 05/08/19 13:18 Respiratory Rate 20 05/08/19 13:18 Blood Pressure 102/64 05/08/19 13:18 O2 Sat by Pulse Oximetry (%) 100 05/08/19 09:00 CBC, BMP 05/07/19 06:15 05/07/19 06:15 HOSPITAL COURSE: Date of Admission:05/05/19 Patient is a 79 y/o male with a history of mild dementia, HTN, CABG ( may 2016) , gout, prostate ca s/p prostate seeds (2004) who is admitted to r/o stroke. Stroke found on MRI. Patient at baseline of mental status. per neuro recs medications increase asa to 325 mg daily and Crestor 40 mg once a day. Patient had non symptomatic bradycardia. Seen by cardio and will f/u as an outpatient for longer duration monitoring. No abnormalities found on tele. Patients vitals stable, able to walk with PT and stable for discharge. EKst degree AV block CT: mild degree of diffuse cerbral atrophy and sulcal widening and ventral dilitation, no acute intracranial pathology Brain MRI: acute nonhemorrhagic infarct left parietal lobe adjacent to the body of the left lateral ventricle extending to the left caudate nucleus and posterior limb of the left internal capsule ECHO: left and right size and function normal Date of Discharge: 05/11/19 Minutes to complete discharge: 40 Discharge Summary Reason For Visit: TRANSIENT ISCHEMIC ATTACK Condition: Improved - Instructions Diet, Activity, Other Instructions: You were admitted to the hospital for a stroke. GOing forward will need to optimize to prevent this from happening in the picture. Your medications have been adjusted to achieve this. PLease refer to medication list for these changes Please take: Aspirin 325 mg by mouth every day Crestor 40 mg by mouth at bedtime Lisinopril 20mg twice a day nifedipine 60mg once a day Hydrochlorothiazide 25mg once a day Flomax 0.4mg once a day Please follow a low salt diet Ambulate with rolling walker for assistance. Please make an appointment to follow up with the neurologist, the referral has been provided for you. Please make an appointment to follow up with your primary care physician within one week. While you were here we monitored your heart and did not find anything abnormal. it may be beneficial to have your heart monitored for a longer time as an out patient. Please make a follow up appointment with the inspector and mender to discuss the function of your heart. Please return to the hospital if you have any chest pain, nausea, vomiting, shortness of breath, dizziness, change in vision, palpitations, or shortness of breath. Referrals: Ruben Betancourt MD [Staff Physician] - Alexis Batres MD [Staff Physician] - Disposition: HOME - Home Medications Comprehensive Discharge Medication List: Ambulatory Orders Cholecalciferol (Vitamin D3) [Vitamin D3] 2,000 unit PO DAILY 05/06/19 Tamsulosin HCl 0.4 mg PO DAILY 05/06/19 Aspirin Coated [Ecotrin -] 325 mg PO DAILY #30 tablet.dr 05/08/19 Hydrochlorothiazide [Hctz -] 25 mg PO DAILY #20 tablet 05/08/19 Lisinopril [Prinivil] 20 mg PO BID #60 tablet 05/08/19 Nifedipine ER [Procardia XL -] 60 mg PO DAILY #30 tab.er.24 05/08/19 Rosuvastatin [Crestor -] 40 mg PO HS #30 tablet 05/08/19 This patient is new to me today: No Emergency Visit: No Critical Care patient: No - Discharge Referral Referred to [facility] No
== END 2019-05-08 15:38 | disposition home or self-care (01) | DRG 66 ==
LOC: JER 21:46 → JERBED 23:37 → J4W 05-06 15:27
PROVIDERS: ADMIT Internal Medicine; ATTEND Internal Medicine
DX: I63.9 Cerebral infarction, unspecified (principal); R00.1 Bradycardia, unspecified; F03.90 Unspecified dementia, unspecified severity, without behavioral disturbance, psychotic disturbance, mood disturbance, and anxiety; I10 Essential (primary) hypertension; N40.0 Benign prostatic hyperplasia without lower urinary tract symptoms; I25.119 Atherosclerotic heart disease of native coronary artery with unspecified angina pectoris; Z85.46 Personal history of malignant neoplasm of prostate; I11.9 Hypertensive heart disease without heart failure; Z95.1 Presence of aortocoronary bypass graft; R29.701 NIHSS score 1
CPT/HCPCS: 36415; 70450-TC; 70551-TC; 71045-TC-FY; 80048; 80053; 80061; 82550; 82607; 83036; 83721; 83735; 83880; 84100; 84443; 84484; 85025; 85027; 85610; 85651; 85730; 86593; 86850; 86900; 86901; 93005; 93010; 93306-TC; 93880-TC; 97116-GP; 97161-GP; 99285-25; J1644